=== PATIENT | female | born 1965 | race African-American/Black ===

== ENCOUNTER 2021-09-04 10:41 | Emergency (ER) | payer OTHER, SELFPAY ==
[2021-09-04 10:54] VITALS: BP 173/83; PULSE 85; RESP 16; TEMP 36.9; O2SAT 99
--- NOTE | 2021-09-04 11:14 | ED_ITS ---
HPI - Extremity Injury (Lower) General Chief Complaint: Extremity Injury, Lower Stated Complaint: Right Knee Pain Source: patient and RN notes reviewed Limitations: no limitations History of Present Illness HPI Narrative: The overweight patient, on minimal medications, presents with right knee pain. Patient states she has about a 1 week history of anterior knee pain is mild, worse with motion, better or rest associate with scant swellin g/effusion. No fever/chills, known occupational/overuse [she walks frequently], lockup, giveaway, redness, injury. Pain is somewhat at the patellar and proximal medial joint line Related Data Home Medications Medication Instructions Recorded Confirmed nebivolol [Bystolic] mg 09/04/21 Allergies Allergy/AdvReac Type Severity Reaction Status Date / Time No Known Allergies Allergy Unverified 03/18/16 15:59 Review of Systems Review of Systems: General/Constitutional: No weight loss,fever Eyes: N0: Redness,discharge Ears/Nose/Throat: No: Epistaxis,ear discharge Respiratory: Denies: Hemoptysis Gastrointestinal: No Vomiting, Bleeding-rectal Skin: No Lumps, eruption Neurologic: No Focal Weakness,Sz Hematologic: Denies: Petechiae/Purpura Psychiatric: No: Suicida ideationl All Other Systems: Reviewed and Negative [facility] Comments At time of signature, agree with nursing past medical, surgical, social and family history. There is no relevant family history pertinent to the presenting complaint Exam Narrative: General Appearance: Well appearing, conjunctiva clear Ears: External ear normal, Auditory canal normal Nose: Normal nose, Nares clear Mouth/Throat: Normal appearing, Normal lips,: Supple Respiratory: Airway patent, No respiratory distress MS knee: Normal strength (mostly intact, limited flexion/extension by pain), Tenderness (anterior patellar and anteromedial joint line, with mild decreased ROM), scant swelling (laterally), Other (no anterior drawer, no collateral laxity, unable to do Diamond) Skin: Warm, Dry, Normal color Neurological: A&O x3, , Normal affect Course Vital Signs Vital signs: Vital Signs Temperature 98.4 F 09/04/21 10:54 Pulse Rate 85 09/04/21 10:54 Respiratory Rate 16 09/04/21 10:54 Blood Pressure 173/83 H 09/04/21 10:54 Pulse Oximetry 99 09/04/21 10:54 Temperature 98.4 F 09/04/21 10:54 Pulse Rate 85 09/04/21 10:54 Respiratory Rate 16 09/04/21 10:54 Blood Pressure 173/83 H 09/04/21 10:54 Pulse Oximetry 99 09/04/21 10:54 Discharge Plan Discharge Clinical Impression: Acute internal derangement of knee Qualifiers: Laterality: right Qualified Code(s): M23.91 - Unspecified internal derangement of right knee Patient Disposition: Home, Self-Care Condition: Stable Instructions: Knee Bursitis (ED) Prescriptions: New prednisone 20 mg tablet 60 mg PO DAILY Qty: 15 RF: 0 tramadol 50 mg tablet 50 - 75 mg PO TID PRN (Reason: pain) Qty: 25 RF: 0 acetaminophen-codeine 300-30 mg tablet 1 - 1.5 tablet PO HS PRN (Reason: pain) Qty: 10 RF: 0 No Action nebivolol [Bystolic] 5 mg Tablet RF: 0 Follow-up/Referrals: Shanti,DO Angelito [Primary Care Provider] -
== END 2021-09-04 11:23 | disposition home or self-care (01) ==
PROVIDERS: Emergency Provider Emergency Medicine; PCP Student in an Organized Health Care Education/Training Program
DX: M23.91 Unspecified internal derangement of right knee (principal); I10 Essential (primary) hypertension
CPT/HCPCS: 99213; G0463

== ENCOUNTER 2021-11-29 00:51 | Day surgery (SDC) | payer OTHER, SELFPAY ==
[2021-10-27 12:41] VITALS: BMI 29.4
--- NOTE | 2021-11-17 09:35 | PC.NURSE ---
Spoke with pt regarding rescheduled colonoscopy. Updated pt on arrival/procedure times. Pt verbalized understanding. Confirmed no changes to health history since previous PAT call. Did update dose of home antihypertensive.
[2021-11-29 08:13] VITALS: BP 162/80; PULSE 75; RESP 18; TEMP 36.3; O2SAT 100
[2021-11-29] MEDS: LACTATED RINGERS 1,000 ML 150 ML IV CONT (08:20)
--- NOTE | 2021-11-29 08:27 | P.PNAN_ITS ---
Anes - Initial Pre Proc Eval Procedure: Operation Date: 11/29/21 09:00 Proposed Procedures p Screening Colonoscopy - Dennys Camarena MD Date/Time: 11/29/21 08:27 Surgeon: Dennys Camarena MD Pre Op Diagnosis: neoplasm screening Patient Data Age: 56 Gender: F Height: 1.68 m Weight: 82 kg Last Vital Signs Temp 36.3 C L 11/29/21 08:13 Pulse 75 11/29/21 08:13 Resp 18 11/29/21 08:13 BP 162/80 H 11/29/21 08:13 Pulse Ox 100 11/29/21 08:13 Allergies Allergy/AdvReac Type Severity Reaction Status Date / Time lisinopril Allergy Cough Verified 11/29/21 08:12 Home Medications Medication Instructions Recorded Confirmed Type nebivolol [Bystolic] 10 mg PO DAILY 10/27/21 11/29/21 History Patient hx anesthesia problems: none Family hx anesthesia problems: none Results Review: All pre-operative results and documents have been reviewed as part of the pre-operative evaluation. [facility], [facility] Past Medical History Medical History (Updated 11/29/21 @ 08:27 by Estuardo Olsen MD) HTN (hypertension) Overweight Surgical History Surgical History (Updated 11/29/21 @ 08:27 by Estuardo Olsen MD) History of section Social History Social History Substance use type: does not use Living arrangements: with family Spiritual care concerns: No Anes - Eval Final PreProcedure Day of Procedure 11/29/21 08:27 Patient weight: overweight Heart: regular rate and rhythm Lungs: clear to auscultation Airway: Mallampati scale class II Neurological: alert and oriented Last oral intake: >/= 8 hours ASA classification: II Emergent: no Anesthetic plan: proceed Anesthesia type and monitoring: general GIVS and standard monitoring Results Review: All pre-operative results and documents have been reviewed as part of the pre-operative evaluation. Informed Consent: The patient's anesthetic plan and its attendant risks and benefits were discussed with the patient/family/POA. Questions were solicited and answers provided to the satisfaction of the patient/family/POA.
--- NOTE | 2021-11-29 08:33 | WPDGICN ---
Assessment and Plan Assessment and plan (1) Encounter for screening colonoscopy: Code(s): Z12.11 - Encounter for screening for malignant neoplasm of colon Status: Acute Assessment and Plan: Patient presents for screening colonoscopy. Appears to be at average risk for colon polyps. GI Consult Note Consult date/time: 11/29/21 08:33 HPI: Zeferino Bae is a 56 year old female Presents for screening colonoscopy. Patient's current weight appetite and bowel movements are normal. She denies abdominal pain. She has had no bleeding. Family history is noncontributory. Review of Systems Review of Systems: All systems reviewed & are unremarkable except as noted in HPI and below PMFSH Past Medical History Medical History (Updated 11/29/21 @ 08:34 by Dennys Camarena MD) HTN (hypertension) Overweight Surgical History Surgical History (Updated 11/29/21 @ 08:27 by Estuardo Olsen MD) History of section Social History Social History Substance use type: does not use Living arrangements: with family Spiritual care concerns: No Meds Home Medications and Allergies Home Medications Medication Instructions Recorded Confirmed Type nebivolol [Bystolic] 10 mg PO DAILY 10/27/21 11/29/21 History Allergies Allergy/AdvReac Type Severity Reaction Status Date / Time lisinopril Allergy Cough Verified 11/29/21 08:12 Vital Signs Vital Signs - 24 hr 11/29/21 08:13 Temperature 97.4 F L Pulse Rate 75 Respiratory Rate 18 Blood Pressure 162/80 H Pulse Oximetry 100 Exam Narrative: Physical exam reveals patient to be alert. Vital signs stable. HEENT exam is unremarkable. Patient is anicteric. Lungs are clear to auscultation and percussion. Heart is without murmur or extra sounds. Abdominal exam bowel sounds are present soft nontender with no organomegaly. Digital external rectal exam is normal.
[2021-11-29 09:34] VITALS: BP 80/45; PULSE 76; RESP 18; O2SAT 99
[2021-11-29 09:44] VITALS: BP 99/58; PULSE 70; RESP 18; O2SAT 99
[2021-11-29 09:54] VITALS: BP 103/68; PULSE 64; RESP 18; O2SAT 100
--- NOTE | 2021-11-29 10:07 | SUR.PHASEII ---
1000: ANESTHESIA SPOKE WITH PT REGARDING BLOOD PRESSURE TODAY AND MEDS TO TAKE OR NOT TO TAKE LATER ON. PT STATES UNDERSTANDING. PT STANDS AND AMBULATES WITHOUT DIFFICULTY.
== END 2021-11-29 10:07 | disposition home or self-care (01) ==
PROVIDERS: PCP Student in an Organized Health Care Education/Training Program; Visit Provider Internal Medicine Gastroenterology
PROC: 0DJD8ZZ Inspection of Lower Intestinal Tract, Via Natural or Artificial Opening Endoscopic (ICD-10-PCS; CPT 45378; principal; 2021-11-29 09:00)
DX: Z12.11 Encounter for screening for malignant neoplasm of colon (principal); K64.0 First degree hemorrhoids; I10 Essential (primary) hypertension
CPT/HCPCS: 45378; J2704; J7120

== ENCOUNTER 2022-06-24 01:00 | Day surgery (SDC) | payer OTHER, SELFPAY ==
[2022-06-14 11:39] VITALS: BMI 28.6
[2022-06-24 08:37] VITALS: BP 166/83; PULSE 77; RESP 20; TEMP 36.3; O2SAT 100; BMI 28.9
--- NOTE | 2022-06-24 08:40 | P.PNAN_ITS ---
Anes - Initial Pre Proc Eval Procedure: Operation Date: 06/24/22 09:30 Proposed Procedures p Esophagogastroduodenoscopy - Dennys Camarena MD Date/Time: 06/24/22 08:40 Surgeon: Dennys Camarena MD Pre Op Diagnosis: abnormal CT scan, GERD Patient Data Age: 56 Gender: F Height: 1.7 m Weight: 83.7 kg Last Vital Signs Temp 97.4 F L 06/24/22 08:37 Pulse 77 06/24/22 08:37 Resp 20 06/24/22 08:37 BP 166/83 H 06/24/22 08:37 Pulse Ox 100 06/24/22 08:37 O2 Del Method Room Air 06/24/22 08:37 Allergies Allergy/AdvReac Type Severity Reaction Status Date / Time lisinopril Allergy Cough Verified 06/24/22 08:31 Home Medications Medication Instructions Recorded Confirmed Type nebivolol 10 mg tablet (Bystolic) 10 mg PO DAILY 06/02/22 06/14/22 History turmeric root extract 150 See Rx Instructions .Route .COMPLEX 06/02/22 06/14/22 History mg-gerardo root extract 25 mg chewable tablet magnesium 250 mg tablet 250 mg PO DAILY 06/14/22 06/14/22 History Patient hx anesthesia problems: none Family hx anesthesia problems: none Results Review: All pre-operative results and documents have been reviewed as part of the pre- operative evaluation. [facility] Past Medical History Medical History (Updated 06/02/22 @ 10:30 by Destiny Bernal APRN) Abnormal findings on imaging test HTN (hypertension) Overweight Surgical History Surgical History (System 05/26/22 @ 14:51 by Pearl Sorensen) History of section Social History Social History (System 05/26/22 @ 14:51 by Pearl Sorensen) Smoking status: Never smoker Alcohol intake: current Alcohol use details: Socially, every 6 mo Substance use: never Substance use type: does not use Living arrangements: with family Spiritual care concerns: No Anes - Eval Final PreProcedure Day of Procedure 06/24/22 08:40 Patient weight: normal Heart: regular rate and rhythm Lungs: clear to auscultation Airway: Mallampati scale class II Neurological: alert and oriented Last oral intake: >/= 8 hours ASA classification: II Emergent: no Anesthetic plan: proceed Anesthesia type and monitoring: general GIVS and standard monitoring Results Review: All pre-operative results and documents have been reviewed as part of the pre- operative evaluation. Informed Consent: The patient's anesthetic plan and its attendant risks and benefits were discussed with the patient/family/POA. Questions were solicited and answers provided to the satisfaction of the patient/family/POA.
[2022-06-24] MEDS: LACTATED RINGERS 1,000 ML 150 ML IV CONT (08:52)
--- NOTE | 2022-06-24 09:10 | WPDHPUPDATE1 ---
History and Physical Update Update Date/Time: 06/24/22 09:10 History and Physical has been reviewed, including an updated exam of the patient. There are NO changes in the patient's condition. Risks, benefits, and alternatives have been discussed and questions answered. Patient agrees to proceed with procedure.
[2022-06-24 09:25] VITALS: BP 114/52; PULSE 91; RESP 26; O2SAT 99
[2022-06-24 09:35] VITALS: BP 107/54; PULSE 74; RESP 27; O2SAT 99
[2022-06-24 09:45] VITALS: BP 102/50; PULSE 72; RESP 19; O2SAT 97
== END 2022-06-24 09:51 | disposition home or self-care (01) ==
PROVIDERS: PCP Student in an Organized Health Care Education/Training Program; Visit Provider Internal Medicine Gastroenterology
PROC: 0DJ08ZZ Inspection of Upper Intestinal Tract, Via Natural or Artificial Opening Endoscopic (ICD-10-PCS; CPT 43235; principal; 2022-06-24 09:30)
DX: Q39.4 Esophageal web (principal); K21.9 Gastro-esophageal reflux disease without esophagitis; I10 Essential (primary) hypertension; K22.9 Disease of esophagus, unspecified
CPT/HCPCS: 43450; 43235; J2704; J7120